=== PATIENT | male | born 1940 ===

== ENCOUNTER 2016-10-20 12:07 | Day surgery (SDC) | payer MEDICARE, MEDICAID ==
[2016-10-20] MEDS ORDERED: Lactated Ringer's 500 ML IV ONE (13:05)
[2016-10-20] MEDS ORDERED: Propofol 10 mg/ml Inj (20 ML) ONE (13:07)
[2016-10-20] MEDS ORDERED: Etomidate 20 mg/10ml Inj IV ONE (13:15)
[2016-10-20 13:59] VITALS: BP 127/56; PULSE 78; RESP 16; TEMP 98; O2SAT 98
== END 2016-10-20 14:02 | disposition home or self-care (01) ==
LOC: H.ENDO 12:07
PROVIDERS: ATTEND Internal Medicine Gastroenterology
DX: Z86.010 Personal history of colon polyps (principal); D12.5 Benign neoplasm of sigmoid colon
CPT/HCPCS: 45380; 88305; J2704; J7120